=== PATIENT | female | born 1985 | race Caucasian/White ===

== ENCOUNTER 2020-09-26 13:25 | Emergency (ER) | payer BC ==
[~2020-09-26] VITALS: Ht 165.1 cm; Wt 59.0 kg
[~2020-09-26 13:25] MED LIST: CIPROFLOXACIN500 M1 PO; CLOMID50 MG OR; KEFLEX500 MG PO; METFORMIN500 MG PO; METO50TA52 PO; PRENATA6 PO; ULTRAM50 MG OR
[2020-09-26] MEDS ORDERED: METOPROL TAR25 MG PO (13:39)
[2020-09-26 13:40] VITALS: BP 141/79
== END 2020-09-26 15:58 | disposition home or self-care (01) | DRG 605 ==
LOC: ED 13:25
DX: S90.31XA Contusion of right foot, initial encounter (principal); I10 Essential (primary) hypertension; X58.XXXA Exposure to other specified factors, initial encounter; Y93.44 Activity, trampolining; Y92.009 Unspecified place in unspecified non-institutional (private) residence as the place of occurrence of the external cause

== ENCOUNTER 2021-07-07 18:53 | Emergency (ER) | payer BC ==
[~2021-07-07 18:53] MED LIST changes: +METOPROL TAR25 MG PO
[2021-07-07 20:24] LABS: HEMATOCRIT 38.8 % (37.0-47.0); HEMOGLOBIN 13.6 g/dl (12.0-16.0); IMMATURE GRANULOCYTES 0.2 % (0.0-5.0); MEAN CELL VOLUME 85.1 fL CALC (80.0-100.0); MEAN CORPUSCULAR HGB 29.8 pG CALC (26.0-32.0); MEAN CORPUSCULAR HGB CONC 35.1 g/dL CAL (32.0-36.0); NEUT# 4.05 thou/uL (2.00-7.15); RED BLOOD COUNT 4.56 mill/uL (4.20-5.60); RED CELL DISTRI WIDTH 11.6 % (11.5-15.5)
[2021-07-07 20:35] LABS: ALBUMIN 4.4 g/dL (3.2-5.0); ALKALINE PHOSPHATASE 71 u/l (38-126); ANION GAP 14 (6-22 (CALC)); BUN 18 mg/dL (7-17); BUN/CREATININE RATIO 24 (12-20 (CALC)); CARBON DIOXIDE 26 mmol/l (22-30); CHLORIDE 103 mmol/l (95-108); CREATININE 0.8 mg/dL (0.5-1.0); GFR > 60 ML/MIN (>=60 (CALC)); GFR FOR AFR.AMER. > 60 ML/MIN (>=60 (CALC)); MAGNESIUM 1.7 mg/dL (1.6-2.3); POTASSIUM 3.4 mmol/l (3.5-5.1); SGOT/AST 39 u/l (14-36); SODIUM 139 mmol/l (137-146); TOTAL PROTEIN 7.5 g/dL (6.3-8.2)
[2021-07-07 20:37] LABS: BILIRUBIN, TOTAL 0.2 mg/dL (0.0-1.4)
[2021-07-07 20:42] LABS: D-DIMER 0.3 mg/L (0.19-0.60)
[2021-07-07 20:46] LABS: ACT PARTIAL THROMBO TIME 21.5 SECONDS (20.0-32.5); MYOGLOBIN 13 ng/mL (0 - 62); PROTHROMBIN TIME 10.2 SECONDS (9.0-12.5)
[2021-07-07 20:56] LABS: URINE BILIRUBIN - DIPSTICK NEGATIVE (NEGATIVE); URINE BLOOD DIPSTICK MODERATE (NEGATIVE); URINE COLOR YELLOW; URINE GLUCOSE - DIPSTICK NEGATIVE (NEGATIVE); URINE KETONE NEGATIVE (NEGATIVE); URINE PROTEIN - DIPSTICK NEGATIVE (NEG-TRACE); URINE UROBILINOGEN - DIPSTICK 0.2 E.U./dL (0.2)
[2021-07-07 21:05] LABS: URINE LEUK ESTERASE SMALL (NEGATIVE); URINE NITRITE - DIPSTICK NEGATIVE (Negative)
[2021-07-07 21:13] LABS: URINE SQUAMOUS EPITHELIAL CELL FEW EPI/hpf (0-FEW)
[2021-07-07] MEDS ORDERED: PROMETHAZINE HY25 M1 PO (22:13)
[2021-07-07 22:22] VITALS: BP 114/71
== END 2021-07-07 22:38 | disposition home or self-care (01) | DRG 392 ==
LOC: ED 18:53
PROVIDERS: Family Medicine
DX: A08.4 Viral intestinal infection, unspecified (principal); I10 Essential (primary) hypertension; F41.9 Anxiety disorder, unspecified; Z20.822 Contact with and (suspected) exposure to COVID-19